=== PATIENT | female | born 1960 | race Caucasian/White ===

== ENCOUNTER 2017-03-06 07:48 | Day surgery (SDC) | payer MEDICARE, MEDICAID ==
[~2017-03-06] VITALS: Ht 167.6 cm; Wt 77.3 kg
[~2017-03-06 07:48] MED LIST: CITA-311 PO; HYDR-3973 PO; LORA10TA65 PO; NAPROSYN
[2017-03-06] MEDS ORDERED: MIDAZolam 1mg/ml 10ml vial ONE (07:51)
[2017-03-06] MEDS ORDERED: fentaNYL/PF 50MCG/1 ML 2ML syringe ONE (07:51)
[2017-03-06 08:29] VITALS: BP 111/69
[2017-03-06 10:20] VITALS: BP 90/58
[2017-03-06 10:30] VITALS: BP 89/61
[2017-03-06 10:40] VITALS: BP 104/68
== END 2017-03-06 10:55 | disposition home or self-care (01) ==
LOC: GI LAB 07:48
PROVIDERS: ATTEND Internal Medicine Gastroenterology
DX: Z09 Encounter for follow-up examination after completed treatment for conditions other than malignant neoplasm (principal); Z86.010 Personal history of colon polyps; Z98.51 Tubal ligation status; Z87.891 Personal history of nicotine dependence
CPT/HCPCS: G0105; G0500; J2250; J3010; J7030; 45378; A4620

== ENCOUNTER 2017-10-02 13:29 | Emergency (ER) | payer MEDICARE, MEDICAID ==
[~2017-10-02] VITALS: Ht 167.6 cm; Wt 80.0 kg
[~2017-10-02 13:29] MED LIST changes: -HYDR-3973 PO; -LORA10TA65 PO; -NAPROSYN
[2017-10-02] MEDS ORDERED: CLIN300C85 PO (16:41)
[2017-10-02 16:47] VITALS: BP 108/72
== END 2017-10-02 16:48 | disposition home or self-care (01) ==
LOC: ER 13:29
DX: L03.116 Cellulitis of left lower limb (principal); G89.29 Other chronic pain; Z98.890 Other specified postprocedural states; Z98.51 Tubal ligation status; Z56.0 Unemployment, unspecified; Z79.899 Other long term (current) drug therapy
CPT/HCPCS: 93971; 99284

== ENCOUNTER 2018-11-14 10:36 | Emergency (ER) | payer MEDICARE, MEDICAID ==
[~2018-11-14] VITALS: Ht 167.6 cm; Wt 75.0 kg
[~2018-11-14 10:36] MED LIST changes: +CLIN-96 PO
[2018-11-14 10:41] VITALS: BP 125/80
[2018-11-14] MEDS ORDERED: albuterol 2.5 MG/3 ML nebule NEB ONE (12:05)
[2018-11-14] MEDS ORDERED: AMOX-580 PO (13:19)
== END 2018-11-14 13:32 | disposition home or self-care (01) ==
LOC: ER 10:36
DX: J32.9 Chronic sinusitis, unspecified (principal); G89.29 Other chronic pain; F31.9 Bipolar disorder, unspecified; F17.200 Nicotine dependence, unspecified, uncomplicated; F10.99 Alcohol use, unspecified with unspecified alcohol-induced disorder; Z98.51 Tubal ligation status; Z98.890 Other specified postprocedural states; Z56.0 Unemployment, unspecified; Z79.899 Other long term (current) drug therapy; Y90.9 Presence of alcohol in blood, level not specified
CPT/HCPCS: 71046; 87502; 87503; 94640; 94760; 99284

== ENCOUNTER 2019-07-21 14:57 | Emergency (ER) | payer MEDICARE, MEDICAID ==
[~2019-07-21] VITALS: Ht 167.6 cm; Wt 80.9 kg
[~2019-07-21 14:57] MED LIST changes: -CLIN-96 PO; +CLIN-97 PO
[2019-07-21] MEDS ORDERED: normal saline 1000ML IV soln IV ONE (16:15)
[2019-07-21 17:29] LABS: BASOPHILS % (AUTO) 0.5 % (0-1); EOSINOPHILS # (AUTO) 0.1 X10'3 (0-0.9); HEMOGLOBIN 13.6 g/dl (12.0-16.0); LYMPHOCYTES # (AUTO) 1.1 X10'3 (1.1-4.8); LYMPHOCYTES % (AUTO) 16.7 % (21-51); MEAN CORPUSCULAR HEMOGLOBIN 31.6 PG (27.0-31.0); MEAN PLATELET VOLUME 7.6 FL (7.4-10.4); MONOCYTES # (AUTO) 0.7 X10'3 (0-0.9); MONOCYTES % (AUTO) 10.5 % (2-12); NEUTROPHILS # (AUTO) 4.9 X10'3 (1.8-7.7); NEUTROPHILS % (AUTO) 71.3 % (42-75); PLATELET COUNT 205 X10'3 (140-440); RED CELL DISTRIBUTION WIDTH 12.8 % (11.5-14.5); WHITE BLOOD COUNT 6.9 X10'3 (4.5-11.0)
[2019-07-21 17:38] LABS: ALANINE AMINOTRANSFERASE 47 U/L (12-78); ALBUMIN 3.1 G/DL (3.4-5.0); ALBUMIN/GLOBULIN RATIO 0.7 (1.1-1.5); ALKALINE PHOSPHATASE 82 IU/L (46-116); ANION GAP 9 (8-16); ASPARTATE AMINO TRANSFERASE 67 U/L (10-37); BILIRUBIN,TOTAL 0.6 MG/DL (0.1-1.0); BLOOD UREA NITROGEN 14 MG/DL (7-18); CALCIUM 8.8 MG/DL (8.5-10.1); CHLORIDE 90 MMOL/L (99-107); CREATININE 1.27 MG/DL (0.40-0.90); GLUCOSE 105 MG/DL (70-104); POTASSIUM 4.1 MMOL/L (3.5-5.1); SODIUM 125 MMOL/L (135-145); TOTAL CARBON DIOXIDE 25.9 MMOL/L (24-32); TOTAL PROTEIN 7.8 G/DL (6.4-8.2); eGFR 44 ML/MIN
[2019-07-21 18:02] LABS: CLARITY,URINE SLIGHTLY CLOUDY (Clear); COLOR,URINE YELLOW (Yellow); GLUCOSE, URINE NEGATIVE (Neg); KETONES,URINE NEGATIVE (Neg); LEUKOCYTE ESTERASE ,URINE NEGATIVE (Neg); NITRITES, URINE NEGATIVE (Neg); OCCULT BLOOD,URINE TRACE-LYSED (Neg); PROTEIN,URINE NEGATIVE (Neg)
[2019-07-21 18:09] LABS: UA COLLECTION TYPE VOIDED
[2019-07-21] MEDS ORDERED: DOXY100C76 PO (18:20)
[2019-07-21] MEDS ORDERED: CEPH250T PO (18:20)
[2019-07-21] MEDS ORDERED: PRED20TA PO (18:20)
[2019-07-21] MEDS ORDERED: ALBU6.7H9 INH (18:20)
[2019-07-21 18:37] LABS: BACTERIA,URINE NONE SEEN /HPF (Neg); MUCUS STRANDS FEW /LPF (Neg); RBC,URINE 0-2 /HPF (0-2); SQUAMOUS EPITHELIAL CELL,UR FEW /LPF (FEW); WBC,URINE 0-4 /HPF (0-4)
[2019-07-21 19:08] VITALS: BP 125/75
== END 2019-07-21 19:05 | disposition home or self-care (01) ==
LOC: ER 14:58
DX: S22.43XA Multiple fractures of ribs, bilateral, initial encounter for closed fracture (principal); J18.9 Pneumonia, unspecified organism; E87.1 Hypo-osmolality and hyponatremia; G89.29 Other chronic pain; F31.9 Bipolar disorder, unspecified; Z98.51 Tubal ligation status; Z72.89 Other problems related to lifestyle; Z56.0 Unemployment, unspecified; Z79.899 Other long term (current) drug therapy; X58.XXXA Exposure to other specified factors, initial encounter; Y93.89 Activity, other specified; Y92.89 Other specified places as the place of occurrence of the external cause; Y99.8 Other external cause status
CPT/HCPCS: 36415; 71045; 74176; 80053; 81001; 83605; 84145; 85025; 87040; 93005; 99285; J7030